=== PATIENT | male | born 2000 | race Caucasian/White ===

== ENCOUNTER 2022-05-09 06:26 | Day surgery (SDC) | payer SELFPAY ==
[2022-05-06 16:44] LABS: Absolute Lymphocytes (CBC) 1.7 K/uL (0.7-4.9); Hematocrit 42.7 % (39.6-49.0); Lymphocytes % 31.2 % (15.3-44.8); MPV 8.5 fL (7.6-11.3); RBC Red Blood Cell Count 5.38 M/uL (4.33-5.43)
[2022-05-09] MEDS ORDERED: CEFAZOLIN SODIUM 1 GM/VIAL ONE (06:44)
[2022-05-09] MEDS ORDERED: Ringers Lactate 1,000 ML IV ONE (06:44)
[2022-05-09] MEDS ORDERED: FENTANYL CITR 100 MCG/2 ML ONE (07:09)
[2022-05-09] MEDS ORDERED: LIDOCAINE 1% MPF 5 ML VIAL ONE (07:09)
[2022-05-09] MEDS ORDERED: propofoL 200 MG/20 ML VIAL IV ONE ×4 (07:09→08:04)
[2022-05-09] MEDS ORDERED: MIDAZOLAM HCL 2 MG/2 ML INJ ONE (07:09)
[2022-05-09] MEDS ORDERED: NS 0.9% VIAL 10 ML ONE (07:30)
[2022-05-09] MEDS ORDERED: KETOROLAC 30 MG/ML INJ ONE (07:42)
[2022-05-09] MEDS ORDERED: ONDANSETRON 4 MG/2 ML VIAL ONE (07:54)
[2022-05-09] MEDS ORDERED: Mastisol Adhesive Liq ONE (08:24)
[2022-05-09] MEDS ORDERED: HYDROCODONE/APAP 7.5/325 MG TAB PO PRN (08:29)
--- NOTE | 2022-05-09 08:35 | P.OP ---
Date of Service: 05/09/22 Preop diagnosis: Left foot mass Postop diagnosis: Complicated left foot ganglion cyst Procedure performed: Excision of complicated left foot ganglion cyst Surgeon: Blane Lara MD Table Cover Folder: Abiodun CARPIO Estimated blood loss: Minimal Specimen: Ganglion cyst Findings: As above Anesthesia: General Complications: None Drains: None Fluids and blood products: Nonapplicable Disposition: Recovery room Operative note: Patient brought to the OR and placed in the supine position. General anesthesia begun. Patient prepped and draped in the usual sterile fashion. Marcaine 0.5% infiltrated locally. 15 blade used to make a 4 cm incision on the dorsum of the left foot at the base of the fourth toe. Subcutaneous tissue divided and deep to that was a large complex ganglion cyst. Dissection proceeded proceeded proximally and distally. It appeared that the cyst was emanating from both the midfoot joint as well as the metatarsal phalangeal joint. The neck of the cyst was clearly identified with sharp and blunt dissection. Bleeding was controlled with cautery and 4-0 silk ties. And then both ends were ligated with 3-0 Vicryl suture ligature as well as a freehand tie. Subsequently the cyst was excised sent to pathology as specimen. Wound irrigated and bleeding controlled with cautery. Subcutaneous tissue was approximated with 3-0 chromic and skin was closed with 3-0 chromic as well. Sterile dressing applied patient awakened to recovery room in good general condition. CC:
[2022-05-09 09:05] VITALS: O2SAT 99
[2022-05-09 10:51] VITALS: BP 129/68; TEMP 97.9
== END 2022-05-09 09:55 | disposition home or self-care (01) ==
LOC: OR 06:26
PROVIDERS: ATTEND Surgery
PROC: 0SBN0ZZ Excision of Left Metatarsal-Phalangeal Joint, Open Approach (ICD-10-PCS; principal; 2022-05-09 07:30)
DX: M67.472 Ganglion, left ankle and foot (principal)
CPT/HCPCS: 36415; 85025; 88304; 88305; J0690; J2250; J2405; J2704; J3010; J7120; U0003